=== PATIENT | male | born 1985 | race Caucasian/White ===

== ENCOUNTER 2020-10-07 21:19 | Emergency (ER) | payer SELFPAY ==
[2020-10-07 21:40] VITALS: BP 139/91; PULSE 73; RESP 18; TEMP 37.1; O2SAT 100; BMI 26.5
[2020-10-08 01:08] VITALS: BP 153/98; PULSE 68; RESP 17; O2SAT 100
--- NOTE | 2020-10-08 02:55 | W.ED.ALLEREA ---
HPI - Allergic Reaction General: Chief complaint: Allergic Reaction Stated complaint: ALLERGIC REACTION TO HORNET STING Time Seen by Provider: 10/08/20 02:51 Source: patient Mode of arrival: ambulatory Limitations: no limitations History of Present Illness: HPI narrative: 35-year-old male who states a red hornet stung him on his left hand roughly 6 to 7 hours ago. He states he took Benadryl at home and has had increased swelling to that hand. Denies any rash. Denies any shortness of breath. Denies any worsening improving factors. He states he does have some pain he rates a 2 out of 10. Associated symptoms: Deny abdominal pain, nausea or vomiting Review of Systems Const: Denies: fever(s), chills, body aches or change in appetite Eyes: Denies: blurry vision or eye discomfort ENMT: Denies: throat pain or dental pain Card: Denies: chest pain Resp: Denies: dyspnea GI: Denies: abdominal pain, nausea, vomiting or diarrhea : Denies: dysuria Musc: Denies: neck pain or back pain Skin/Breast: Denies: rash Neuro: Denies: headache(s) Psych: Denies: depression Kolby/Lymph: Denies: easy bruising All/Imm: Denies: urticaria Physical Exam Const: COMMON NORMALS: no acute distress, patient oriented x3 and healthy appearing HENMT: COMMON NORMALS: normocephalic and atraumatic HEAD & SCALP: normocephalic and atraumatic Eye: COMMON NORMALS: Equal, round and reactive pupils present and EOMs intact bilaterally PUPIL: Yes Equal, round and reactive pupils present Neck/C-Spine: COMMON NORMALS: full ROM and supple Chest: COMMONS NORMALS: normal inspection of the chest and normal palpation of entire chest wall Resp: COMMON NORMALS: normal respiratory effort, No retractions, No use of accessory muscles and clear to auscultation bilaterally AUSCULTATION: clear to auscultation bilaterally Cardio: COMMON NORMALS: regular rate, regular rhythm and No murmurs present (Cardio) RATE: regular rate RHYTHM: regular rhythm GI: COMMON NORMALS: Normal to inspection, nondistended, normoactive bowel sounds present, Soft to palpation, non-tender and no masses PALPATION: Yes Soft to palpation Extremity: COMMON NORMALS: normal to inspection and full ROM Neuro: COMMON NORMALS: patient oriented x3, moves all extremities and no focal motor deficits Psych: COMMON NORMALS: mental status grossly normal, Normal thought process present and cooperative THOUGHT PROCESS: Normal thought process present Skin: COMMON NORMALS: no wounds NARRATIVE SKIN EXAM: Insect sting to left hand with moderate swelling to the hand. He has full range of motion. No loss of sensation no rash Course Vital Signs: Vital signs: Vital Signs Temperature 98.8 F 10/07/20 21:40 Pulse Rate 68 10/08/20 01:08 Respiratory Rate 17 10/08/20 01:08 Blood Pressure 153/98 10/08/20 01:08 Pulse Oximetry 100 10/08/20 01:08 MDM - Allergic Reaction MDM Narrative: Medical decision making narrative: Patient presents here with stating. Patient was to take Benadryl at home. Patient given Benadryl and Pepcid here. He has no signs of anaphylaxis. He is stable for discharge is to follow-up PCP and return if worsening. Discharge Plan Discharge Patient Disposition: Home Clinical Impression: Accidental wasp sting Condition: Stable Discharge Orders: Discharge ED (Routine); Ordered 10/08/20 Ordered By: Ronan Caldwell Discharge Diet: Advance as tolerated Discharge Activity: Resume usual activity Patient Instructions: Insect Bite or Sting (ED) Coding Level of Care Code ED Chainstitch Felled Seam Operator for Diana Bond
[2020-10-08] MEDS: diphenhydrAMINE 50 mg Capsule PO (03:04)
[2020-10-08] MEDS: dexamethasone 4 mg Tablet 10 MG PO (03:05)
[2020-10-08] MEDS: famotidine 20 mg Tablet 40 MG PO (03:05)
== END 2020-10-08 03:24 | disposition home or self-care (01) ==
PROVIDERS: Emergency Provider Emergency Medicine
DX: T63.461A Toxic effect of venom of wasps, accidental (unintentional), initial encounter (principal)
CPT/HCPCS: 99283; J8540; Q0163

== ENCOUNTER 2021-08-26 08:17 | Emergency (ER) | payer MEDICAID, SELFPAY ==
[2021-08-26] MEDS: succinylcholine 20 mg/mL SDV 10mL 100 MG IV (08:28)
[2021-08-26 08:30] VITALS: RESP 20
[2021-08-26] MEDS: sodium chloride 0.9% 1,000 ML 999 ML IV (08:30)
--- NOTE | 2021-08-26 08:30 | PC.PHAR ---
pt unable to verify medications-no meds pull up on ext med history
[2021-08-26] MEDS: propofol 1,000 MG/100 ML INJ 14.29 MG IV (08:38)
--- NOTE | 2021-08-26 08:39 | XR_ITS ---
WS: [id number] Portable AP supine chest, 08/26/2021 Clinical Data: INTUBATION Comparison: None. Findings: The endotracheal tube is above the ramon. No nodules, masses or effusions are seen. The he art is normal. The pulmonary vascularity is not increased. No pneumonia or pneumothorax is seen. Shaila tor leads are on the chest wall. XR/XR chest 1V portable [id number] Impression: Satisfactory position of endotracheal tube.
[2021-08-26] MEDS: vecuronium 10 mg SDV IVP (08:50)
[2021-08-26 08:58] LABS: ABG PCO2 34.9 mmHg (35-45); Alveolar-Arterial Oxygen Gradi 25.8 mmHg (5-10); Arterial Blood Gas Hematocrit 42.8 % (42-52); Base Excess ABG -8.3 mmol/L (-2.0-2.0); Blood Gas Allen Test Pos; Blood Gas Sample Site Radial, left; Blood Gas Sample Type Arterial; Blood Gas Tidal Volume 0.55; Carboxyhemoglobin 5.2 %THgb (0.4-20.1); HCO3 ABG 17.2 mmol/L (22-26); HGB O2 Sat 94.1 % (95-100); Methemoglobin 0.8 % (0.4-1.5); Oxygen Device VENT; Oxygen Saturation ABG > 100.0; Potassium Level - ABG 3.1 mmol/L (3.5-5.0)
--- NOTE | 2021-08-26 09:05 | XR_ITS ---
WS: [id number] Portable AP supine chest, 08/26/2021, 0855 hours Clinical Data: dyspnea/cough Comparison: Portable chest, 08/26/2021, 0836 hours Findings: A right internal jugular venous catheter has been inserted and ends near the caval atrial j unction. No pneumothorax is seen. The endotracheal tube remains above the ramon. Monitor leads are o n the chest wall. XR/XR chest 1V portable [id number] Impression: Insertion of right internal jugular venous catheter.
[2021-08-26 09:24] VITALS: BP 145/96; PULSE 128; RESP 20; TEMP 36.6; O2SAT 94; BMI 25.1
[2021-08-26] MEDS: sodium chloride 0.9% 1,000 ML 150 ML IV (09:30)
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
[2021-08-26 10:01] LABS: Basophils # 0.1 10^3/uL (0.0-0.1); Basophils % 0.6 %; Eosinophils # 0.3 10^3/uL (0.0-0.8); Eosinophils % 2.9 %; Hematocrit 35.5 % (42.0-52.0); Hemoglobin 12.3 g/dL (11.7-16.6); Lymphocytes # 4.5 10^3/uL (0.8-4.8); Lymphocytes % 38.5 %; Mean Corpuscular HGB Conc 34.6 g/dL (30.0-36.0); Mean Corpuscular Hemoglobin 30.6 pg (28.0-34.0); Mean Corpuscular Volume 88.3 fl (80-94); Mean Platelet Volume 10.2 fL (7.4-10.4); Monocytes # 0.7 10^3/uL (0.2-0.9); Monocytes % 6.3 %; Neutrophils % 51.4 %; Nucleated Red Blood Cells % 0 %; Platelet Count 302 10^3/cmm (130-400); Red Blood Count 4.02 10^6/uL (4.1-5.3); Red Cell Distribution Width 12.4 % (12.1-15.1); White Blood Count 11.7 10^3/uL (4.0-10.0)
[2021-08-26 10:06] LABS: Alanine Aminotransferase 15 U/L (0-41); Albumin Level 2.9 g/dL (3.5-5.2); Alkaline Phosphatase 41 IU/L (40-130); Blood Urea Nitrogen 15 mg/dL (6-20); Calcium 6.8 mg/dL (8.5-10.5); Carbon Dioxide 17 mmol/L (22-29); Chloride 106 mmol/L (98-107); Globulin 1.5 g/dL (1.3-4.6); Glomerular Filtration Rate 94.4 mL/min (90-130); Glucose 215 mg/dL (65-115); Osmolality Calculated 295 mOsm/kg (285-295); Sodium 139 mmol/L (136-145); Total Bilirubin 0.3 mg/dL (0.15-1.2); Total Protein 4.4 g/dL (6.6-8.7)
[2021-08-26 10:12] LABS: Aspartate Amino Transferase 21 U/L (0-40)
[2021-08-26 10:13] LABS: Anion Gap 18.7 (5-19); Potassium 2.7 mmol/L (3.5-5.1)
[2021-08-26 10:20] LABS: Slide Review Slide Review Perform
== END 2021-08-26 09:30 ==
PROVIDERS: Emergency Provider Family Medicine
DX: T59.811A Toxic effect of smoke, accidental (unintentional), initial encounter (principal); T21.21XA Burn of second degree of chest wall, initial encounter; T21.23XA Burn of second degree of upper back, initial encounter; T24.202A Burn of second degree of unspecified site of left lower limb, except ankle and foot, initial encounter; T24.201A Burn of second degree of unspecified site of right lower limb, except ankle and foot, initial encounter; T22.20XA Burn of second degree of shoulder and upper limb, except wrist and hand, unspecified site, initial encounter; T25.222A Burn of second degree of left foot, initial encounter; T25.221A Burn of second degree of right foot, initial encounter; T20.27XA Burn of second degree of neck, initial encounter; T20.20XA Burn of second degree of head, face, and neck, unspecified site, initial encounter; T23.202A Burn of second degree of left hand, unspecified site, initial encounter; T23.201A Burn of second degree of right hand, unspecified site, initial encounter; T31.20 Burns involving 20-29% of body surface with 0% to 9% third degree burns; S51.811A Laceration without foreign body of right forearm, initial encounter; W25.XXXA Contact with sharp glass, initial encounter
CPT/HCPCS: 31500; 36556; 36600; 51702; 71045; 80051; 80053; 82330; 82805; 85025; 94002; 94799; 96374; 99291; C1751; J0330; J2704; J3490; J7030

== ENCOUNTER → 2021-10-24 08:37 | Outpatient (BNVA) | payer MEDICAID, SELFPAY | PROVIDERS: Visit Provider Thoracic Surgery (Cardiothoracic Vascular Surgery) | DX: I96 Gangrene, not elsewhere classified (principal); L98.492 Non-pressure chronic ulcer of skin of other sites with fat layer exposed | CPT/HCPCS: 11042; 97597; 97598; 99203; 99213; A6210 ==

== ENCOUNTER → 2021-10-31 16:01 | Outpatient (BNVA) | payer MEDICAID, SELFPAY | PROVIDERS: Visit Provider Thoracic Surgery (Cardiothoracic Vascular Surgery) | DX: I96 Gangrene, not elsewhere classified (principal); L98.492 Non-pressure chronic ulcer of skin of other sites with fat layer exposed | CPT/HCPCS: 97597 ==

== ENCOUNTER → 2021-11-07 13:57 | Outpatient (BNVA) | payer MEDICAID, SELFPAY | PROVIDERS: Visit Provider Thoracic Surgery (Cardiothoracic Vascular Surgery) | DX: I96 Gangrene, not elsewhere classified (principal); L98.492 Non-pressure chronic ulcer of skin of other sites with fat layer exposed | CPT/HCPCS: 97597; A6212 ==

== ENCOUNTER → 2021-11-21 13:00 | Outpatient (BNVA) | payer MEDICAID, SELFPAY | PROVIDERS: Visit Provider Nurse Practitioner Family | DX: I96 Gangrene, not elsewhere classified (principal); L98.422 Non-pressure chronic ulcer of back with fat layer exposed | CPT/HCPCS: 99213 ==

== ENCOUNTER → 2021-11-28 10:24 | Outpatient (BNVA) | payer MEDICAID, SELFPAY | PROVIDERS: Visit Provider Thoracic Surgery (Cardiothoracic Vascular Surgery) | DX: L98.492 Non-pressure chronic ulcer of skin of other sites with fat layer exposed (principal); I96 Gangrene, not elsewhere classified | CPT/HCPCS: 97597 ==

== ENCOUNTER → 2021-12-05 13:04 | Outpatient (BNVA) | payer MEDICAID, SELFPAY | PROVIDERS: Visit Provider Thoracic Surgery (Cardiothoracic Vascular Surgery) | DX: Z09 Encounter for follow-up examination after completed treatment for conditions other than malignant neoplasm (principal) | CPT/HCPCS: 99212 ==

== ENCOUNTER 2025-02-23 15:26 | Emergency (ER) | payer MEDICAID, SELFPAY ==
[2025-02-23 15:33] VITALS: BP 159/94; PULSE 98; RESP 18; TEMP 36.4; O2SAT 98
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
--- NOTE | 2025-02-23 15:45 | US_ITS ---
WS: [id number] INDICATION: LEFT axillary lump TECHNIQUE: Ultrasound soft tissue LEFT axilla in the area of concern FINDINGS: Ultrasound soft tissue LEFT axilla area of concern. Adjacent skin graft site. There is an ovoid hypoechoic somewhat irregular interdigitating lesion measuring approximately 3.7 x 2.4 x 3.3 cm deep to the subcutaneous fat abutting the chest wall. Findings are nonspecific but considerations include hematoma, abscess, or possibly fibroma or elastofibroma dorsi. This does not appear drainable. Recommend follow-up to resolution or if no resolution contrast-enhanced CT chest in further evaluation. This may require ultrasound- guided biopsy if no resolution or CT chest not definitive. US/US soft tissue/extremity [id number] IMPRESSION: See discussion above Discussed with PINKY Farias at 02/23/2025 4:40 PM.
[2025-02-23 16:12] VITALS: BP 135/100; PULSE 64; O2SAT 100
[2025-02-23 16:17] LABS: Hematocrit 46.2 % (37-53); Hemoglobin 15.60 g/dL (11.27-16.99); Mean Corpuscular HGB Conc 33.8 g/dL (30-55); Mean Corpuscular Hemoglobin 29.8 pg (27-33); Mean Corpuscular Volume 88.3 fl (82-101); Nucleated Red Blood Cells % 0 %; Platelet Count 225 10^3/cmm (157-399); Red Blood Count 5.23 10^6/uL (3.85-5.65); White Blood Count 5.43 10^3/uL (3.29-11.43)
[2025-02-23 16:40] LABS: Alanine Aminotransferase 6 U/L (0-41); Albumin Level 4.5 g/dL (3.5-5.2); Alkaline Phosphatase 72 U/L (40-130); Anion Gap 17.1 (5-19); Aspartate Amino Transferase 9 U/L (0-40); Blood Urea Nitrogen 8 mg/dL (6-20); Calcium 9.2 mg/dL (8.5-10.5); Carbon Dioxide 25 mmol/L (22-29); Chloride 102 mmol/L (98-107); Globulin 2.7 g/dL (1.3-4.6); Glucose 109 mg/dL (65-115); Osmolality Calculated 289 mOsm/kg (285-295); Potassium 4.1 mmol/L (3.5-5.1); Sodium 140 mmol/L (136-145); Total Protein 7.2 g/dL (6.6-8.7)
[2025-02-23 17:01] VITALS: BP 157/97; PULSE 65; O2SAT 98
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
== END 2025-02-23 17:02 | disposition home or self-care (01) ==
PROVIDERS: Emergency Provider Physician Assistant
DX: R22.2 Localized swelling, mass and lump, trunk (principal); Z72.0 Tobacco use
CPT/HCPCS: 36415; 76882; 80053; 85025; 99284

== ENCOUNTER 2025-02-27 01:10 | Emergency (ER) | payer MEDICAID, SELFPAY ==
--- OUTSIDE RECORDS SUMMARY | 2025-02-27 01:17 | XMS_ITS | Clinical Summary ---
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 Inhaled Oxygen Concentration - - Weight 100.2 [...] Required) Completed Medical Devices Implanted Type Area Scrap Breaker Device Identifier Shelf Expiration Date Model / Serial / Lot Drsg Novosorb Btm [id number] Btm-2040 - [id number] Implanted:Qty: 1 on 08/29/2021 by August Corey DO at [facility] N/A: [facility] [id number] 01/04/2024 BT-2039 / / [id number] Drsg Novosorb Btm [id number] Btm-2040 - [id number] Implanted:Qty: 1 on 08/29/2021 by August Corey DO at [facility] N/A: [facility] [id number] 01/04/2024 BTM-2039 / / [id number] Drsg Novosorb Btm [id number] Btm-2040 - [id number] Implanted:Qty: 1 on 08/29/2021 by August Corey DO at [facility] N/A: [facility] [id number] 01/04/2024 BTM-2039 / / [id number] Drsg Novosorb Btm [id number] Btm-2040 - [id number] Implanted:Qty: 1 on 08/29/2021 by August Corey DO at [facility] N/A: [facility] [id number] 01/04/2024 BTM-2039 / / [id number] Drsg Novosorb Btm [id number] Btm-2040 - [id number] Implanted:Qty: 1 on 08/29/2021 by August Corey DO at [facility] Biological N/A: Back [employer] [id number] 01/04/2024 BT-2039 / / [id number] Drsg Novosorb Btm [id number] Bt-2039 - [id number] Implanted:Qty: 1 on 08/30/2021 by August Corey DO at [facility] Biological Right: Sab[employer] DILL[employer] [id number] 02/26/2024 BT-2039 / / [id number] Drsg Novosorb Btm [id number] Bt-2039 - [id number] Implanted:Qty: 1 on 08/30/2021 by August Corey DO at [facility] Biological Left: Sabino DILLON [id number] 02/26/2024 BT-2039 / / [id number] Insurance MEDICAID [place] RX INFOCROSSING Medicaid Advance Directives For more information, please contact: [phone] * Full Code (Latest Code Status on [...]
[2025-02-27 01:27] VITALS: BP 156/109; PULSE 72; RESP 18; TEMP 36.8; O2SAT 99; BMI 23.0
--- NOTE | 2025-02-27 01:40 | CTR_ITS ---
PROCEDURE INFORMATION: Exam: CT Chest With Contrast; Diagnostic Exam date and time: 02/27/2025 2:19 AM Age: 39 years old Clinical indication: Other: Left axillary mass; Additional info: L axillary mass, had pop->further characterization TECHNIQUE: Imaging protocol: Diagnostic computed tomography of the chest with contrast. Radiation optimization: All CT scans at this facility use at least one of these dose optimization techniques: automated exposure control; mA and/or kV adjustment per patient size (includes targeted exams where dose is matched to clinical indication); or iterative reconstruction. Contrast material: OMNI 350; Contrast volume: 100 ml; Contrast route: INTRAVENOUS (IV); COMPARISON: CR XR chest 1V portable [id number] 08/26/2021 8:51 AM RADIATION DOSE METRICS: Total DLP (mGy-cm): 306.5 FINDINGS: Lungs: Unremarkable. No consolidation. No masses. Pleural spaces: Unremarkable. No pneumothorax. No pleural effusion. Heart: Unremarkable. No cardiomegaly. No pericardial effusion. Lymph nodes: Unremarkable. No enlarged lymph nodes. Vasculature: Unremarkable. No aortic aneurysm. Bones/joints: Unremarkable. No acute fracture. Soft tissues: Soft tissue mass in the left axilla measures 8.9 x 4.3 cm with moderate surrounding fat stranding. This is concerning for intramuscular hematoma, likely within the inferior deltoid. Recommend MRI correlation for further evaluation. Intramuscular infection can not be excluded. Small metallic subcutaneous foreign bodies present inferior to the mass measuring [address]/CT chest w con* [id number] IMPRESSION: Soft tissue mass in the left axilla measures 8.9 x 4.3 cm with moderate surrounding fat stranding. This is concerning for intramuscular hematoma, likely within the inferior deltoid. Recommend MRI correlation for further evaluation. Intramuscular infection can not be excluded. Small metallic subcutaneous foreign bodies present inferior to the mass measuring 7 mm.
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
[2025-02-27 02:09] LABS: Hematocrit 46.9 % (37-53); Hemoglobin 16.20 g/dL (11.27-16.99); Mean Corpuscular HGB Conc 34.5 g/dL (30-55); Mean Corpuscular Hemoglobin 29.6 pg (27-33); Mean Corpuscular Volume 85.7 fl (82-101); Nucleated Red Blood Cells % 0 %; Platelet Count 271 10^3/cmm (157-399); Red Blood Count 5.47 10^6/uL (3.85-5.65); White Blood Count 12.72 10^3/uL (3.29-11.43)
[2025-02-27 02:27] LABS: Anion Gap 14.6 (5-19); Blood Urea Nitrogen 8 mg/dL (6-20); Calcium 9.5 mg/dL (8.5-10.5); Carbon Dioxide 28 mmol/L (22-29); Chloride 98 mmol/L (98-107); Glucose 98 mg/dL (65-115); Osmolality Calculated 282 mOsm/kg (285-295); Potassium 3.6 mmol/L (3.5-5.1); Sodium 137 mmol/L (136-145)
[2025-02-27] MEDS: iohexol 350 mg/mL 500 mL Btl (per mL) IV (02:32)
[2025-02-27 02:48] LABS: CRP High Sensitivity Cardiac 0.280 mg/dL (0.0-0.3)
[2025-02-27 03:19] VITALS: BP 160/92; PULSE 83; O2SAT 99
== END 2025-02-27 03:21 | disposition home or self-care (01) ==
PROVIDERS: Emergency Provider Student in an Organized Health Care Education/Training Program
DX: S40.022A Contusion of left upper arm, initial encounter (principal); Z72.0 Tobacco use; W05.2XXA Fall from non-moving motorized mobility scooter, initial encounter; Z89.432 Acquired absence of left foot
CPT/HCPCS: 71260; 80048; 85025; 86141; 96374; 99285; J1885